=== PATIENT | female | born 1990 | race American Indian/Alaskan Native ===

== ENCOUNTER 2020-02-02 20:42 | Emergency (ER) | payer OTHER ==
--- NOTE | 2020-02-02 20:45 | EDM.PDOC ---
ED HPI GENERAL MEDICAL PROBLEM - General Stated Complaint: AMBULANCE Time Seen by Provider: 02/02/20 20:45 Source of Information: Reports: Patient, EMS, EMS Notes Reviewed, RN, RN Notes Reviewed History Limitations: Reports: No Limitations - History of Present Illness INITIAL COMMENTS - FREE TEXT/NARRATIVE: Patient presents to ER per [place] [facility] from [facility] where she was incarcerated. Patient fell off the top bunk and injured her right arm, states she hit her head and has a headache, pain to the right occipital area, states she did not get knocked out. Denies pain elsewhere. Denies chances of , states she has had a tubal ligation. 50 mcg of fentanyl was given in route per [place] ambulance service. Onset: Today, Sudden Right Elbow Pain Score (Numeric/FACES): 10 - Related Data Allergies Allergy/AdvReac Type Severity Reaction Status Date / Time No Known Allergies Allergy Verified 02/02/20 20:47 Home Meds: Home Meds . 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 ED EXAM, GENERAL - Physical Exam Exam: See Below Exam Limited By: No Limitations General Appearance: Alert, WD/WN, Moderate Distress Eye Exam: Bilateral Eye: EOMI, Normal Inspection Ears: Normal External Exam, Hearing Grossly Normal Nose: Normal Inspection Throat/Mouth: Normal Inspection, Normal Voice, No Airway Compromise Head: Atraumatic, Normocephalic, Other (tenderness to right occiputal area) Neck: Normal Inspection, Supple, Non-Tender, Full Range of Motion Respiratory/Chest: No Respiratory Distress, Lungs Clear, Normal Breath Sounds, No Accessory Muscle Use, Chest Non-Tender Cardiovascular: Normal Peripheral Pulses, Regular Rate, Rhythm, No Edema, No Gallop, No JVD, No Murmur, No Rub Peripheral Pulses: 2+: Radial (L), Radial (R) GI/Abdominal: Normal Bowel Sounds, Soft, Non-Tender (Female) Exam: Deferred Rectal (Female) Exam: Deferred Back Exam: Normal Inspection, Full Range of Motion, NT Extremities: Arm Pain (right), Limited Range of Motion (right arm), Other (abrasion to right forearm at site of deformity) Neurological: Alert, Oriented, CN II-XII Intact, Normal Cognition, Normal Gait, Normal Reflexes, No Motor/Sensory Deficits Psychiatric: Normal Affect, Normal Mood Skin Exam: Warm, Dry, Normal Color, No Rash, Wound/Incision (1cm subq laceration/abrasion to right forearm) Lymphatic: No Adenopathy ED TRAUMA EXTREMITY PROCEDURES - Splinting Right Upper Extremity Splint Site: right arm Pre-Procedure NV Status: Normal Post-Procedure NV Status: Normal Splint Material: Fiberglass, Sling Splint Design: Volar Applied & Form Fitted By: Provider Provider Post-Splint Application NV Check: NV Status Normal, Good Position Complications: No Course - Vital Signs Last Recorded V/S: Last Vital Signs Temp 98.2 F 02/02/20 20:42 Pulse 81 02/02/20 20:42 Resp 18 02/02/20 20:42 BP 121/93 H 02/02/20 20:42 Pulse Ox 100 02/02/20 20:42 - Orders/Labs/Meds Orders: Active Orders 24 hr Category Date Time Status Cervical Spine wo Cont [CT] Urgent Exams 02/02/20 20:58 Taken Labs: Laboratory Tests 02/02/20 02/02/20 Range/Units 21:05 21:05 WBC 6.3 (5.0-10.0) 10^3/uL RBC 3.95 L (4.2-5.4) 10^6/uL Hgb 9.2 L (12.0-16.0) g/dL Hct 30.3 L (37.0-47.0) % MCV 76.7 L D (80-100) fL MCH 23.3 L (27.0-34.0) pg MCHC 30.4 L (33.0-35.0) g/dL Plt Count 346 D (150-450) 10^3/uL Neut % (Auto) 59.4 (42.2-75.2) % Lymph % (Auto) 31.4 (20.5-50.1) % [place] % (Auto) 7.8 (2-8) % Eos % (Auto) 1.1 (1.0-3.0) % Baso % (Auto) 0.3 (0.0-1.0) % Sodium 141 (136-145) mmol/L Potassium 4.1 (3.5-5.1) mmol/L Chloride 104 (98-107) mmol/L Carbon Dioxide 27 (21-32) mmol/L Anion Gap 14.1 H (7-13) mEq/L BUN 14 (7-18) mg/dL Creatinine 0.67 (0.55-1.02) mg/dL Est Cr Clr Drug Dosing 124.98 mL/min Estimated GFR (MDRD) > 60 BUN/Creatinine Ratio 20.9 (No establ ref range) Glucose 122 H (74-99) mg/dL Calcium 8.8 (8.5-10.1) mg/dL Total Bilirubin 0.3 (0.2-1.0) mg/dL AST 16 (15-37) U/L ALT 26 (14-59) U/L Alkaline Phosphatase 80 (46-116) U/L Total Protein 6.7 (6.4-8.2) g/dL Albumin 3.6 (3.4-5.0) g/dL Globulin 3.1 Albumin/Globulin Ratio 1.2 Meds: Medications Discontinued Medications Generic Name Dose Route Start Last Admin Trade Name Freq PRN Reason Stop Dose Admin Bacitracin 1 dose 02/02/20 22:38 02/02/20 22:46 Bacitracin Oint 1 Gm TOP 02/02/20 22:39 1 dose ONETIME ONE Administration Cephalexin 500 mg 02/02/20 22:34 02/02/20 22:46 Keflex PO 02/02/20 22:35 500 mg ONETIME ONE Administration Hydromorphone HCl 0.5 mg 02/02/20 20:57 02/02/20 21:04 Dilaudid IVPUSH 10/03/20 20:58 0.5 mg ONETIME ONE Administration Hydromorphone HCl 0.5 mg 02/02/20 22:34 02/02/20 22:46 Dilaudid IVPUSH 02/02/20 22:35 0.5 mg ONETIME ONE Administration - Radiology Interpretation Free Text/Narrative:: Right elbow xray: PROCEDURE INFORMATION: Exam: XR Right Elbow Exam date and time: 02/02/2020 9:08 PM Age: 29 years old Clinical indication: Other: Pain; Additional info: Fell off top bunk, head pain, right elbow pain TECHNIQUE: Imaging protocol: XR Right elbow. Views: 1 or 2 views. COMPARISON: No relevant prior studies available. FINDINGS: Bones/joints: Fracture of the proximal ulna. There is no evidence of joint malalignment or dislocation. Soft tissues: Overlying soft tissue swelling. IMPRESSION: 1. Fracture of the proximal ulna. 2. No evidence of acute dislocation. 3. Overlying soft tissue swelling. Thank you for allowing us to participate in the care of your patient. Dictated and Authenticated by: Minor Fisher DO 02/02/2020 9:49 PM Central Time ([place] & [place]) Head CT wo contrast: PROCEDURE INFORMATION: Exam: CT Head Without Contrast Exam date and time: 02/02/2020 9:22 PM Age: 29 years old Clinical indication: Other: Fall; Additional info: Fell off top bunk, head pain, right elbow pain TECHNIQUE: Imaging protocol: Computed tomography of the head without contrast. Radiation optimization: All CT scans at this facility use at least one of these dose optimization techniques: automated exposure control; mA and/or kV adjustment per patient size (includes targeted exams where dose is matched to clinical indication); or iterative reconstruction. COMPARISON: No relevant prior studies available. FINDINGS: Limitations: Streak artifact limits evaluation at the level of the skull base. Brain: 7 x 4 mm ovoid hyperdensity in the inferior anterior left frontal lobe (series 3, image 13). The naavrro-white matter differentiation is normal. Cerebral ventricles: No ventriculomegaly. Bones/joints: No acute fracture. Paranasal sinuses: Visualized sinuses are unremarkable. No fluid levels. Mastoid air cells: No mastoid effusion. Soft tissues: Unremarkable. IMPRESSION: 1. Streak artifact limits evaluation at the level of the skull base. 2. 7 x 4 mm ovoid hyperdensity in the inferior anterior left frontal lobe, suspicious for acute intraparenchymal hemorrhage. Thank you for allowing us to participate in the care of your patient. Dictated and Authenticated by: Estephanie Beal MD 02/02/2020 10:36 PM Central Time ([place] & [place]) [place] wo contrast: PROCEDURE INFORMATION: Exam: CT Cervical Spine Without Contrast Exam date and time: 02/02/2020 9:22 PM Age: 29 years old Clinical indication: Other: Fall/pain; Additional info: Fell off top bunk, head pain, right elbow pain TECHNIQUE: Imaging protocol: Computed tomography images of the cervical spine without contrast. Radiation optimization: All CT scans at this facility use at least one of these dose optimization techniques: automated exposure control; mA and/or kV adjustment per patient size (includes targeted exams where dose is matched to clinical indication); or iterative reconstruction. COMPARISON: No relevant prior studies available. FINDINGS: Vertebrae: No acute fracture. Normal alignment. Discs/Spinal canal/Neural foramina: No significant disc protrusion. No severe spinal canal stenosis. No significant neural foraminal narrowing. Soft tissues: Unremarkable. Lungs: Lung apices are normal. IMPRESSION: No acute findings. Thank you for allowing us to participate in the care of your patient. Dictated and Authenticated by: Nigel Mcneil MD 02/02/2020 10:56 PM Central Time ([place] & [place]) See rad report - Re-Assessments/Exams Free Text/Narrative Re-Assessment/Exam: 02/02/20 22:58 Discussed hemorrhage of the brain with the patient. She refuses to go to [facility]. Patient states she will drive there tomorrow. Patient advised to be transferred to a higher level of care. Advised the bleeding could increase and she could potentially . Patient states she is aware and continues to refuse. Patient signed out AMA. Departure - Departure Time of Disposition: 22:54 Disposition: Against Medical Advice 07 Condition: Serious Clinical Impression: Intraparenchymal hemorrhage of brain Fracture of ulna Qualifiers: Encounter type: initial encounter Ulna location: proximal ulna Fracture type: open Open fracture type: open type I or II Fracture morphology: unspecified fracture morphology Laterality: right Qualified Code(s): S52.001B - Unspecified fracture of upper end of right ulna, initial encounter for open fracture type I or II - Discharge Information *PRESCRIPTION DRUG MONITORING PROGRAM REVIEWED*: No *COPY OF PRESCRIPTION DRUG MONITORING REPORT IN PATIENT [place]: No Forms: ED Department Discharge, Refusal of Care AMA Sepsis Event Note (ED) - Focused Exam Vital Signs: Vital Signs Temp Pulse Resp BP Pulse Ox 02/02/20 20:42 98.2 F 81 18 121/93 H 100 - My Orders Last 24 Hours: My Active Orders 02/02/20 20:58 Cervical Spine wo Cont [CT] Urgent - Assessment/Plan Last 24 Hours: My Active Orders 02/02/20 20:58 Cervical Spine wo Cont [CT] Urgent
[2020-02-02 20:47] VITALS: BP 121/93; PULSE 81
[2020-02-02] MEDS ORDERED: HYDROmorphone 0.5 MG/0.5 ML Syringe IVPUSH ONE ×2 (20:57→22:34)
[2020-02-02 21:31] LABS: ANION GAP 14.1 mEq/L (7-13); CHLORIDE,CL 104 mmol/L (98-107); SODIUM,NA 141 mmol/L (136-145)
--- NOTE | 2020-02-02 21:50 | CR ---
PROCEDURE INFORMATION: Exam: XR Right Elbow Exam date and time: 02/02/2020 9:08 PM Age: 29 years old Clinical indication: Other: Pain; Additional info: Fell off top bunk, head pain, right elbow pain TECHNIQUE: Imaging protocol: XR Right elbow. Views: 1 or 2 views. COMPARISON: No relevant prior studies available. FINDINGS: Bones/joints: Fracture of the proximal ulna. There is no evidence of joint malalignment or dislocation. Soft tissues: Overlying soft tissue swelling. IMPRESSION: 1. Fracture of the proximal ulna. 2. No evidence of acute dislocation. 3. Overlying soft tissue swelling.
[2020-02-02] MEDS ORDERED: Cephalexin 500 MG Cap PO ONE (22:34)
--- NOTE | 2020-02-02 22:36 | CT ---
PROCEDURE INFORMATION: Exam: CT Head Without Contrast Exam date and time: 02/02/2020 9:22 PM Age: 29 years old Clinical indication: Other: Fall; Additional info: Fell off top bunk, head pain, right elbow pain TECHNIQUE: Imaging protocol: Computed tomography of the head without contrast. Radiation optimization: All CT scans at this facility use at least one of these dose optimization techniques: automated exposure control; mA and/or kV adjustment per patient size (includes targeted exams where dose is matched to clinical indication); or iterative reconstruction. COMPARISON: No relevant prior studies available. FINDINGS: Limitations: Streak artifact limits evaluation at the level of the skull base. Brain: 7 x 4 mm ovoid hyperdensity in the inferior anterior left frontal lobe (series 3, image 13). The navarro-white matter differentiation is normal. Cerebral ventricles: No ventriculomegaly. Bones/joints: No acute fracture. Paranasal sinuses: Visualized sinuses are unremarkable. No fluid levels. Mastoid air cells: No mastoid effusion. Soft tissues: Unremarkable. IMPRESSION: 1. Streak artifact limits evaluation at the level of the skull base. 2. 7 x 4 mm ovoid hyperdensity in the inferior anterior left frontal lobe, suspicious for acute intraparenchymal hemorrhage.
[2020-02-02] MEDS ORDERED: Bacitracin Oint 1 GM U/D Packet TOP ONE (22:38)
--- NOTE | 2020-02-02 22:56 | CT ---
PROCEDURE INFORMATION: Exam: CT Cervical Spine Without Contrast Exam date and time: 02/02/2020 9:22 PM Age: 29 years old Clinical indication: Other: Fall/pain; Additional info: Fell off top bunk, head pain, right elbow pain TECHNIQUE: Imaging protocol: Computed tomography images of the cervical spine without contrast. Radiation optimization: All CT scans at this facility use at least one of these dose optimization techniques: automated exposure control; mA and/or kV adjustment per patient size (includes targeted exams where dose is matched to clinical indication); or iterative reconstruction. COMPARISON: No relevant prior studies available. FINDINGS: Vertebrae: No acute fracture. Normal alignment. Discs/Spinal canal/Neural foramina: No significant disc protrusion. No severe spinal canal stenosis. No significant neural foraminal narrowing. Soft tissues: Unremarkable. Lungs: Lung apices are normal. IMPRESSION: No acute findings.
== END 2020-02-02 22:57 | disposition left against medical advice (07) ==
LOC: DL.ED 20:42
DX: S52.001B Unspecified fracture of upper end of right ulna, initial encounter for open fracture type I or II (principal); S06.2X9A Diffuse traumatic brain injury with loss of consciousness of unspecified duration, initial encounter; S50.811A Abrasion of right forearm, initial encounter; Z90.49 Acquired absence of other specified parts of digestive tract; Z98.51 Tubal ligation status; W06.XXXA Fall from bed, initial encounter
CPT/HCPCS: 29105; 29125; 36415; 70450; 72125; 73070; 80053; 85025; 96374; 96376; 99284; A9270; J1170

== ENCOUNTER 2024-08-06 17:02 | Emergency (ER) | payer MEDICAID ==
[2024-08-06 17:26] VITALS: BP 123/69; PULSE 80
[2024-08-06] MEDS: Ketorolac 30 MG/ML SDV IM ONE (19:08)
== END 2024-08-06 19:08 | disposition home or self-care (01) ==
LOC: DL.ED 17:02
DX: M94.0 Chondrocostal junction syndrome [Tietze] (principal); Z90.49 Acquired absence of other specified parts of digestive tract
CPT/HCPCS: 71045; 96372; 99283; J1885